=== PATIENT | female | born 1980 | race Caucasian/White ===

== ENCOUNTER 2018-09-01 21:32 | Outpatient (CLI) | payer MEDICAID, OTHER ==
[~2018-09-01] VITALS: Ht 170.2 cm; Wt 97.0 kg
[2018-09-01 21:30] VITALS: Ht 170.2 cm; Wt 97.0 kg
[2018-09-01 22:45] VITALS: BP 117/69; PULSE 85; RESP 18
[2018-09-01] MEDS ORDERED: ACYC400T2 PO (22:50)
[2018-09-01] MEDS ORDERED: PREN-93 PO (22:50)
--- NOTE | 2018-09-02 00:10 | PN ---
Triage Information Date/Time September 02, 2018 Reason for visit: DFM Weeks of Gestation 39w 3d /Para 1/0 Diabetes: none Hypertention: none Additional information Pt was sent in by Dr Jackson for an NST/BPP and for possible induction. He is not available by phone. PMHx: none. PSHx: none. NKDA. Objective Vital Signs Date Temp Pulse Resp B/P (MAP) Pulse Ox O2 O2 Flow FiO2 Time Delivery Rate 09/01/18 98.2 85 18 117/69 Room Air 22:45 (85) Heart Rate: 150's Heart Rate Comments Accels to 170 BPM. No decels. Contractions: None Results/Medications Imaging Results Closed/thick/high. Disposition: Discharge Assessment/Plan A: IUP at 39w 3d. Decreased movement. Not in labor. P:The pt is not in labor and not postdates and not inducible so no indication for induction and her doctor is not available and the rooms on [facility] are all completely full. D/c home and to f/u with her doctor on Tuesday 09/05. kick counts reviewed. JEAN MAICAS MD Sep 02, 2018 00:10
--- NOTE | 2018-09-02 00:31 | TRIAGE ---
OB Triage Datetime Report Generated by CPN: 09/02/2018 00:30 Datetime: 09/02/2018 00:00 Labor Evaluation Frequency: x2 Monitor Mode: External (Annotations: removed) Duration (sec)2399: 110-180 Pattern: Normal: <= 5 Contractions in 10 Minutes Heart Rate FHR Baseline Rate: 160 Monitor Mode: External US (Annotations: removed) Variability: Moderate 6-25 bpm Accelerations: 15X15 Decelerations: None Category: Category I Comments: Some loss of contact Datetime: 09/01/2018 23:45 Vaginal Exam Dilatation (cms): 0.0 Effacement (%): 0 Station: -3 Exam By: C ASHISH Datetime: 09/01/2018 23:32 Comments: Patient states she feels active movement. Datetime: 09/01/2018 23:00 Labor Evaluation Frequency: occasional with irritability Monitor Mode: External Duration (sec)2399: 50-60 Heart Rate FHR Baseline Rate: 160 Monitor Mode: External US Variability: Moderate 6-25 bpm Accelerations: Prolonged Decelerations: None Category: Category I Comments: Some loss of contact Datetime: 09/01/2018 22:53 Temperature Route: Oral Resting Tone [place]: Relaxed Datetime: 09/01/2018 22:45 Stage of : OB Triage Assessment Type: Triage Maternal Assessment Level of Consciousness: Keenly Alert, Responsive DTR's/Clonus: DTRs 2+; No Clonus Headache: Denies Blurred Vision: No Respiratory Effort: Unlabored; Regular Rhythm; Equal Expansion Breath Sounds, Left: Clear and Equal Breath Sounds, Right: Clear and Equal Nausea/Vomiting: Denies RUQ Epigastric Pain: Denies Lower Extremities Edema: None Degree: None Upper Extremities Edema: None Degree: None Facial Edema: None Temperature Route: Oral Fall Risk Assessment History of Falling: (0) No Secondary Diagnosis: (0) No Ambulatory Aid: (0) Bedrest/Nurse Assist IV Therapy: (0) No Gait: (0) Normal/Bedrest/Immobile Mental Status: (0) Oriented to Own Ability Fall Score: 0 Fall Risk Score Definition: No Risk: No action required Comments: Patient states she feels active movement. Pain Assessment Pain Scale: 0 Pain Presence: None/Denies Pain Type: N/A Datetime: 09/01/2018 22:20 Monitor Mode: External (Annotations: applied) Resting Tone [place]: Relaxed Monitor Mode: External US (Annotations: applied) Datetime: 09/01/2018 22:11 EGA: 39.3 Datetime: 09/01/2018 21:23 Time of Arrival: 09/01/2018 21:23 Arrived By: Ambulatory Arrived From: Dr. Hankins Chief Complaint: Sent from clinic with written orders for NST and BPP for decreased movement Movement: Present Contractions: Denies/Absent Rupture of Membranes: Denies Vaginal Bleeding: None Vaginal Discharge: Denies Recent Sexual Intercouse: Denies Abdominal Trauma: Not Applicable Patient Complaints: Other Time Provider Notified: 09/01/2018 23:54 Provider Notified: Dr. Jackson Initial Plan: EFM x2, BPP, NST
== END 2018-09-02 00:15 | disposition home or self-care (01) ==
LOC: L-D 21:32 → OBT 21:32 → L-D 22:09 → OBT 09-02 00:15
PROVIDERS: ATTEND Obstetrics & Gynecology
DX: O36.8130 Decreased fetal movements, third trimester, not applicable or unspecified (principal); Z3A.39 39 weeks gestation of pregnancy
CPT/HCPCS: 76818; Z7500; G0463

== ENCOUNTER 2018-09-02 07:51 | Inpatient (IN) | payer OTHER ==
[~2018-09-02] VITALS: Ht 170.2 cm; Wt 97.4 kg
[~2018-09-02 07:51] MED LIST: ACYC400T2 PO; PREN-93 PO
[2018-09-02 08:12] VITALS: Ht 170.2 cm; Wt 97.4 kg
[2018-09-02] MEDS ORDERED: LACTATED RINGER'S 1,000 ML IV PRN (08:14)
[2018-09-02] MEDS ORDERED: BUTORPHANOL 2 MG INJ IV PRN (08:30)
[2018-09-02] MEDS ORDERED: METHYLERGONOVINE 0.2 MG INJ IM PRN (08:30)
[2018-09-02] MEDS ORDERED: CARBOPROST 250 MCG INJ IM PRN (08:30)
[2018-09-02] MEDS ORDERED: OXYTOCIN 30 UNITS/LR 500 ML IV SCH ×2 (08:30)
[2018-09-02] MEDS ORDERED: OXYTOCIN 30 UNITS/LR 500 ML IV PRN (08:30)
[2018-09-02] MEDS ORDERED: MISOPROSTOL 200 MCG TAB PR PRN (08:30)
[2018-09-02] MEDS ORDERED: IBUPROFEN 600 MG TAB PO PRN (08:30)
[2018-09-02] MEDS ORDERED: LIDOCAINE 1% (MPF) 30 ML INJ INJ PRN (08:30)
[2018-09-02] MEDS: LACTATED RINGER'S 1,000 ML IV SCH ×3 (09:44→23:09)
[2018-09-02] MEDS: MISOPROSTOL 50 MCG CAPSULE PO SCH ×4 (09:44→22:04)
--- NOTE | 2018-09-02 12:25 | HP ---
Date/Time of Note Date/Time of Note DATE: 09/02/18 TIME: 12:23 OB - History Hx of Present Free Text/Dictation @39+wks GA with Decreased movements : 1 Para: 0 Care: Good Care Ultrasounds: Normal mid trimester US Obstetrical Complications: None Medical Complications: None Past Family/Social History * Past Medical, Surgical, Family and Obstetric Histories reviewed from chart. OB Admission Exam Physical Exam Abdomen: WNL Cervical Dilatation: Fingertip Effacement: 50% Station: -1 Membranes: Intact Heart Rate: 140's Accelerations: Accelerations Present Decelerations: No Decelerations Varibility: Moderate Last 72 hours Lab Results CBC & BMP 09/02/18 08:44 OB Assessment/Plan Reason for admission: observation Other Assessment: PMH Capri PSH Denies Plan: Induction SOHEILA SEYMOUR M.D. Sep 02, 2018 12:25
[2018-09-02] MEDS: ACYCLOVIR 400 MG TAB PO SCH ×2 (21:00→22:04)
[2018-09-03] MEDS: MISOPROSTOL 50 MCG CAPSULE PO SCH ×3 (01:59→09:00)
[2018-09-03] MEDS: CALCIUM CARBONATE 500 MG CHEW TAB PO SCH ×2 (02:38→12:30)
[2018-09-03] MEDS: LACTATED RINGER'S 1,000 ML IV SCH ×3 (04:40→11:06)
[2018-09-03] MEDS ORDERED: FENTAnyl 2MCG/ML-ROPIV 0.2% 100 ML ONE (05:14)
--- NOTE | 2018-09-03 05:20 | PREAC ---
Date/Time of Note Date/Time of Note DATE: 09/03/18 TIME: : Anesthesia Eval and Record Evaluation Time Pre-Procedure Interview DATE: 09/03/18 TIME: 05: Age 37 Sex female NPO: 8 hrs Preoperative diagnosis Labor Pain Planned procedure Labor Epidural Past Medical History Past Medical History: Includes Heme: Anemia : : (1), Para: (0), Gestational age: (38) Surgery & Anesthesia Issues No known issue Meds Anticoagulation: No Beta Rosalba within 24 hr: No Reason Beta Rosalba not given: Pt. not on B-Rosalba Reported Medications Vit No.124/Iron/FA ( Vitamin Tablet) 1 Each Tablet, 1 EACH PO, TAB 09/01/18 Acyclovir* (Acyclovir*) 400 Mg Tablet, 400 MG PO BID, TAB 09/01/18 Current Medications Lactated Ringer's 1,000 ml @ 125 mls/hr Q8H IV Last administered on 09/03/18at 04:40; Admin Dose 125 MLS/HR; Start 09/02/18 at 08:14 Butorphanol Tartrate (Stadol) 2 mg Q2H PRN IV .PAIN SCALE 6-10 Last administered on 09/02/18at 23:52; Admin Dose 2 MG; Start 09/02/18 at 08:30 Lidocaine (Xylocaine 1% (Mpf)) 30 ml ONCE PRN INJ .EPISIOTOMY; Start 09/02/18 at 08:30 Oxytocin/Lactated Ringer's 500 ml @ 500 mls/hr ONCE POST IV ; Start 09/02/18 at 08:30 Oxytocin/Lactated Ringer's 500 ml @ 125 mls/hr POST IV ; Start 09/02/18 at 08:30 Ibuprofen (Motrin) 600 mg ONCE PRN PO .PAIN 1-5; Start 09/02/18 at 08:30 Lactated Ringer's 1,000 ml @ 2,000 mls/hr Q30M PRN IV .ANESTHESIA; Start 09/02/18 at 08:14 Oxytocin/Lactated Ringer's 500 ml @ 0 mls/hr ONCE PRN IV .VAGINAL BLEEDING; Start 09/02/18 at 08:30 Methylergonovine Maleate (Methergine) 0.2 mg ONCE PRN IM .VAGINAL BLEEDING; Start 09/02/18 at 08:30 Carboprost Tromethamine (Hemabate) 250 mcg ONCE PRN IM .VAGINAL BLEEDING; Start 09/02/18 at 08:30 Misoprostol (Cytotec) 1,000 mcg ONCE PRN MD .VAGINAL BLEEDING; Start 09/02/18 at 08:30 Misoprostol (Cytotec 50 Mcg Capsule) 50 mcg Q4 PO Last administered on 09/03/18at 01:59; Admin Dose 50 MCG; Start 09/02/18 at 09:30; Stop 09/03/18 at 09:30 Acyclovir (Zovirax) 400 mg BID PO Last administered on 09/02/18at 22:04; Admin Dose 400 MG; Start 09/02/18 at 12:00 Calcium Carbonate (Tums) 500 mg PC MEALS PO Last administered on 09/03/18at 02:38; Admin Dose 500 MG; Start 09/03/18 at 08:35 Meds reviewed: Yes Allergies Coded Allergies: No Known Allergy (Unverified , 09/01/18) Allergies Reviewed: Yes Labs/Studies Labs Reviewed: Reviewed by anesthesiologist Result Diagram: 09/02/18 0844 Laboratory Tests 09/02/18 08:44 Blood Bank Test 09/02/18 08:44 Antibody Screen NEGATIVE Blood Type O POSITIVE Rh Immune Globulin Candidate NO test: Positive Studies: ECG (n/a), CXR (n/a) Pre-procedure Exam Airway: Adequate mouth opening, Adequate thyromental dist Mallampati: Mallampati II Teeth: Normal Lung: Normal Heart: Normal ASA Physical Status ASA physical status: 2 Emergency: None Planned Anesthetic Neuraxial: Epidural Planned Pain Management Epidural Pre-operative Attestations Prior to commencing anesthesia and surgery, the patient was re-evaluated, there was verification of: *The patient's identity *The results of appropriate recent lab work and preoperative vital signs *The above evaluation not changing prior to induction *Anesthetic plan, risk benefits, alternative and complications discussed with patient/family; questions answered; patient/family understands, accepts and wishes to proceed. JEFF DANIEL MD Sep 03, 2018 05:20
--- NOTE | 2018-09-03 05:22 | PAC ---
Date/Time of Note Date/Time of Note DATE: 09/03/18 TIME: 05:22 Post-Anesthesia Notes Post-Anesthesia Note Last documented vital signs T: 98.0 Activity: WNL Respiratory function: WNL Cardiovascular function: WNL Mental status: Baseline Pain reasonably controlled: Yes Hydration appropriate: Yes Nausea/Vomiting absent: Yes JEFF DANIEL MD Sep 03, 2018 05:22
[2018-09-03] MEDS ORDERED: NALOXONE (0.4 MG/ML) INJ IV PRN (05:30)
[2018-09-03] MEDS ORDERED: FENTAnyl 2MCG/ML-ROPIV 0.2% 100 ML BAG EPI SCH (05:30)
[2018-09-03] MEDS: ACYCLOVIR 400 MG TAB PO SCH (09:28)
[2018-09-03] MEDS ORDERED: OXYTOCIN 30 UNITS/LR 500 ML IV SCH ×2 (12:00→21:58)
[2018-09-03] MEDS ORDERED: SODIUM CHLORIDE 0.9% 1L IRRIG IRR SCH (14:00)
[2018-09-03] MEDS ORDERED: DEXTROSE 5%-LR 1,000 ML IV PRN (14:00)
[2018-09-03] MEDS ORDERED: ONDANSETRON 4 MG INJ ONE (17:28)
[2018-09-03] MEDS ORDERED: ONDANSETRON 4 MG INJ IV STA (17:30)
[2018-09-03 20:30] VITALS: BP 134/80; PULSE 79; RESP 18
[2018-09-03] MEDS ORDERED: NACL 0.9% 3 ML SYG IV SCH (22:00)
[2018-09-03] MEDS ORDERED: MISOPROSTOL 200 MCG TAB PR PRN (22:00)
[2018-09-03] MEDS ORDERED: SENNA/DOCUSATE NA (8.6MG/50MG) TAB PO PRN (22:00)
[2018-09-03] MEDS ORDERED: CARBOPROST 250 MCG INJ IM PRN (22:00)
[2018-09-03] MEDS ORDERED: OXYTOCIN 30 UNITS/LR 500 ML IV PRN (22:00)
[2018-09-03] MEDS ORDERED: ZOLPIDEM 5 MG TAB PO PRN (22:00)
[2018-09-03] MEDS ORDERED: METHYLERGONOVINE 0.2 MG INJ IM PRN (22:00)
[2018-09-03] MEDS ORDERED: LANOLIN HPA 1 PKT TOP PRN (22:00)
[2018-09-03] MEDS ORDERED: WITCH HAZEL/GLYCERIN PAD PR PRN (22:00)
[2018-09-03] MEDS ORDERED: BENZOCAINE 20% 56 ML SPRAY TOP PRN (22:00)
[2018-09-03] MEDS ORDERED: OXYCODONE/ASPIRIN (4.88/325) TAB PO PRN (22:00)
[2018-09-03] MEDS ORDERED: ACETAMINOPHEN 325 MG TAB PO PRN (23:00)
[2018-09-04] VITALS: BP 114/75; PULSE 77; RESP 18
[2018-09-04 04:09] VITALS: BP 114/69; PULSE 85; RESP 18
[2018-09-04] MEDS: IBUPROFEN 600 MG TAB PO SCH ×4 (06:51→17:51)
[2018-09-04 08:00] VITALS: BP 114/59; PULSE 78; RESP 18
[2018-09-04] MEDS: SENNA/DOCUSATE NA (8.6MG/50MG) TAB PO SCH ×2 (09:34→21:02)
--- NOTE | 2018-09-04 11:08 | LDN ---
Date/Time of Note Date/Time of Note DATE: 09/04/18 TIME: 11:07 Delivery Summary 39+ Placenta Delivered: Spontaneously Meconium: Light Perineal laceration: 2 Anesthesia type: Epidural Estimated blood loss: 200 Sponge & Needle done & correct: Yes All needle counts correct: Yes Any foreign bodies felt in the: No Infant Delivery Information Sex Sex: female Apgars 1 Minute: 9 5 Minute: 9 Suctioning Nose & mouth suctioned at elmer: Yes Delee suction performed: Yes Umbilical Cord Umbilical cord with: 3 Vessels Cord presentations: nuchal cord (x1 tight) Cord Blood was obtained: Yes Mother & Baby Disposition Disposition Mom & Baby to Maternity; Good: Yes Baby to NICU: No SOHEILA SEYMOUR M.D. Sep 04, 2018 11:08
--- NOTE | 2018-09-04 11:10 | QN ---
Documentation Comment PPD#1 is stable afebrile tolerates diet No VB +BM +voids VS stable Gen NAD Abd soft NT ND Genitalia No blood at perineum --->Discharge plan tomorrow SOHEILA SEYMOUR M.D. Sep 04, 2018 11:10
--- NOTE | 2018-09-04 11:11 | DS ---
Date/Time of Note Date/Time of Note DATE: 09/04/18 TIME: 11:10 Discharge Summary Admission/Discharge Info Admit Date/Time Sep 02, 2018 at 07:51 Discharge Date/Time 09/05/2018 Discharge Diagnosis Patient Condition: Good Hospital Course uneventful Home Meds Reported Medications Vit No.124/Iron/FA ( Vitamin Tablet) 1 Each Tablet, 1 EACH PO, TAB 09/01/18 Acyclovir* (Acyclovir*) 400 Mg Tablet, 400 MG PO BID, TAB 09/01/18 Primary Care Provider Care Physician No Primary Pending Labs Laboratory Tests Test 09/04/18 06:57 White Blood Count 20.8 10^3/ul (4.8-10.8) Red Blood Count 3.81 10^6/ul (4.20-5.40) Hemoglobin 11.5 g/dl (12.0-16.0) Hematocrit 35.0 % (37.0-47.0) Mean Corpuscular Volume 91.9 fl (82.0-101.0) Mean Corpuscular Hemoglobin 30.2 pg (29.0-33.0) Mean Corpuscular Hemoglobin Concent 32.9 g/dl (32.0-37.0) Red Cell Distribution Width 13.8 % (11.5-14.5) Platelet Count 168 10^3/UL (140-415) Mean Platelet Volume 12.8 fl (7.4-10.4) Immature Granulocytes % 0.900 % (0.001-0.429) Neutrophils % 77.4 % (39.0-77.0) Lymphocytes % 14.6 % (15.0-51.0) Monocytes % 6.2 % (0.0-11.0) Eosinophils % 0.6 % (0.0-7.0) Basophils % 0.3 % (0.0-2.0) Nucleated Red Blood Cells % 0.0 /100WBC (0.0-0.0) Immature Granulocytes # 0.190 10^3/ul (0.0-0.031) Neutrophils # 16.1 10^3/ul (1.6-7.5) Lymphocytes # 3.0 10^3/ul (0.8-2.9) Monocytes # 1.3 10^3/ul (0.3-0.9) Eosinophils # 0.1 10^3/ul (0.0-0.5) Basophils # 0.1 10^3/ul (0.0-0.1) Nucleated Red Blood Cells # 0.0 10^3/ul (0.0-0.0) SOHEILA SEYMOUR M.D. Sep 04, 2018 11:11
[2018-09-04 12:00] VITALS: BP 104/59; PULSE 80; RESP 20
[2018-09-04 16:00] VITALS: BP 115/74; PULSE 80; RESP 20
[2018-09-04 19:50] VITALS: BP 121/88; PULSE 83; RESP 18
[2018-09-05] MEDS: IBUPROFEN 600 MG TAB PO SCH ×3 (00:01→11:42)
[2018-09-05 03:50] VITALS: BP 104/67; PULSE 71; RESP 18
[2018-09-05 08:00] VITALS: BP 122/81; PULSE 76; RESP 18
[2018-09-05] MEDS: SENNA/DOCUSATE NA (8.6MG/50MG) TAB PO SCH (08:34)
[2018-09-05] MEDS ORDERED: MEASLES,MUMPS,RUBELLA VACCINE INJ SC* ONE (10:30)
--- NOTE | 2018-09-06 15:34 | DELSUM ---
Delivery Summary A-C Datetime Report Generated by CPN: 09/06/2018 15:34 DELIVERY PERSONNEL [place] Boss: Kelli Carreon MATERNAL INFORMATION Delivery Anesthesia: Epidural Medications in Delivery: 30 units Pitocin Delivery QBL (ml): 200 Placenta Cultured: No Maternal Complications: None LABOR SUMMARY EDC: 09/05/2018 00:00 No. Babies in Womb: 1 Attempted: No Labor Anesthesia: Epidural LABOR INFORMATION Reason for Induction: Other Reason for Induction- Other: ELECTIVE Onset of Labor: 09/03/2018 11:00 Complete Dilatation: 09/03/2018 16:37 Cervical Ripening Agents: Cytotec @ 50mcg Group B Beta Strep: Negative Antibiotics # of Doses: 0 Steroids Given: None Reason Steroids Not Administered: Not Applicable MEMBRANES Membranes Rupture Method: Artificial Rupture of Membranes: 09/03/2018 11:22 Length of Rupture (hr): 6.20 Amniotic Fluid Color: Clear Amniotic Fluid Amount: Small Amniotic Fluid Odor: None STAGES OF LABOR Stage 1 hr: 5 Stage 1 min: 37 Stage 2 hr: 0 Stage 2 min: 57 Stage 3 hr: 0 Stage 3 min: 2 Total Time in Labor hr: 6 Total Time in Labor min: 36 VAGINAL DELIVERY Episiotomy: None Laceration Extension: First Degree Laceration Type: Vaginal Laceration Repair: Yes Initial Vag Sponge Count: 10 Final Vag Sponge Count: 10 Initial Vag Sharps Count: 1+1 Final Vag Sharps Count: 2 Sponge Count Correct: Yes; Vaginal Sweep Performed Sharps Count Correct: Yes BABY A INFORMATION Delivery Date/Time: 09/03/2018 17:34 Method of Delivery: Vaginal Born in Route : No : N/A Forceps: N/A Vacuum Extraction: N/A Shoulder Dystocia : No SHOULDER DYSTOCIA BABY A Infant Delivery Date/Time: 09/03/2018 17:34 PRESENTATION/POSITION BABY A Presentation: Cephalic Cephalic Presentation: Vertex Breech Presentation: N/A PLACENTA INFORMATION BABY A Placenta Delivery Time : 09/03/2018 17:36 Placenta Method of Delivery: Spontaneous Placenta Status: Delivered SCORES BABY A Heart Rate 1 min: >100 bpm Resp Effort 1 min: Good Cry Reflex Irritability 1 min: Cough/Sneeze/Pulls Away Muscle Tone 1 min: Active Motion Color 1 min: Body [employer], Extremit Blue Resuscitation Effort 1 min: Tactile Stimulation SCORE 1 MIN: 9 Heart Rate 5 min: >100 bpm Resp Effort 5 min: Good Cry Reflex Irritability 5 min: Cough/Sneeze/Pulls Away Muscle Tone 5 min: Active Motion Color 5 min: Body [employer], Extremit Blue Resuscitation Effort 5 min: Tactile Stimulation SCORE 5 MIN: 9 INFANT INFORMATION BABY A Gestational Age at Delivery: 39.5 Gestational Status: Full Term- 39- 40.6 Weeks Outcome : Liveborn, with signs of life Condition : Stable Infant Sex: Female IDENTIFICATION/MEDS BABY A ID Band Number: [id number] ID Band Location: Right Leg; Left Arm Sensor Applied: Yes Sensor Number: [id number] Sensor Location : Cord Clamp Vitamin K Given : Not Given Erythromycin Given: Not Given WEIGHT/LENGTH BABY A Infant Birthweight (gm): 3610 Weight (lb): 7 Infant Weight (oz): 15 Length (in): 19.75 Infant Length (cm): 50.17 CORD INFORMATION BABY A No. Cord Vessels: 3 Nuchal Cord : Around Neck x1, Tight Cord Blood Taken: Yes Suction: Mouth; Nose ASSESSMENT BABY A Infant Complications: Multiple Variable Decels Physical Findings at Delivery: Caput Succedaneum; Puncture Wnd - Scalp Elec Respirations: Appears Normal Credit Control Clerk/ALS Called : No
== END 2018-09-05 15:34 | disposition home or self-care (01) | DRG 807 ==
LOC: L-D 07:51 → PP1 09-03 20:04 → EDSTATUS 09-05 07:49
PROVIDERS: ADMIT Obstetrics & Gynecology; ATTEND Obstetrics & Gynecology
PROC: 3E033VJ Introduction of Other Hormone into Peripheral Vein, Percutaneous Approach (ICD-10-PCS; 2018-09-03)
PROC: 10E0XZZ Delivery of Products of Conception, External Approach (ICD-10-PCS; principal; 2018-09-04)
PROC: 0KQM0ZZ Repair Perineum Muscle, Open Approach (ICD-10-PCS; 2018-09-04)
DX: O36.8130 Decreased fetal movements, third trimester, not applicable or unspecified (principal); O70.1 Second degree perineal laceration during delivery; O69.1XX0 Labor and delivery complicated by cord around neck, with compression, not applicable or unspecified; Z3A.39 39 weeks gestation of pregnancy; Z37.0 Single live birth
CPT/HCPCS: 62322; 76815; 85025; 85610; 85730; 86592; 86850; 86900; 86901; 87340; 99464; A4310; J0595; J2405; J2590; J3010; J7120